=== PATIENT | male | born 1975 | race Asian ===

== ENCOUNTER 2017-11-29 07:03 | Emergency (ER) | payer SELFPAY ==
[~2017-11-29] VITALS: Ht 170.2 cm; Wt 86.2 kg
[2017-11-29] MEDS ORDERED: TDAP [DIPH/PERTUSSIS/TET] 0.5 ML VIAL IM ONE ×2 (07:13→07:30)
[2017-11-29] MEDS ORDERED: HYDROCODONE/APAP 5/325MG 1 EACH TABLET ONE (07:24)
[2017-11-29] MEDS ORDERED: HYDROCODONE/APAP 5/325MG 1 EACH TABLET PO ONE (07:30)
[2017-11-29 09:23] VITALS: BP 122/76
== END 2017-11-29 09:25 | disposition home or self-care (01) ==
LOC: ER 07:04
DX: S96.811A Strain of other specified muscles and tendons at ankle and foot level, right foot, initial encounter (principal); M79.89 Other specified soft tissue disorders; Z60.2 Problems related to living alone; V23.4XXA Motorcycle driver injured in collision with car, pick-up truck or van in traffic accident, initial encounter; Y93.89 Activity, other specified; Y92.413 State road as the place of occurrence of the external cause; Y99.8 Other external cause status
CPT/HCPCS: 73610-TC; 90715; A4606; A6402; Z7610